=== PATIENT | male | born 1950 | race American Indian/Alaskan Native ===

== ENCOUNTER 2017-12-15 09:56 | Outpatient (CLI) | payer MEDICARE ==
[2017-12-15 10:31] LABS: Blood Urea Nitrogen 12 mg/dL (9-20)
[2017-12-15] MEDS ORDERED: NACL 0.9% 0 ML ONE (10:43)
--- NOTE | 2017-12-15 15:25 | Cat Scan Report ---
FINAL REPORT EXAM: CT CERVICAL SPINE WO/W CON HISTORY: ARM PAIN, NECK PAIN COMPARISON: None. TECHNIQUE: Multiple contiguous axial images were obtained through the cervical spine without administration of IV contrast. Reformatted sagittal and coronal images were available for review. FINDINGS: There is no acute fracture or dislocation. The vertebral body heights are maintained. There are calcifications of the anterior and posterior longitudinal ligaments. C1-C2: Hypertrophic changes of the articulation. C2-C3: Intervertebral disc space narrowing with anterior and uncovertebral osteophyte formation. Disc osteophyte complex creates mild central stenosis. Mild left foraminal stenosis. C3-C4: Intervertebral disc space narrowing with anterior and uncovertebral osteophyte formation. Disc osteophyte complex causes mild central stenosis. Moderate bilateral facet arthropathy. There is moderate right foraminal stenosis and mild left foraminal stenosis. C4-C5: There is anterior fusion hardware at this level. There is intervertebral disc space narrowing with anterior posterior osteophyte formation. Moderate bilateral facet arthropathy. Mild central stenosis. No foraminal stenosis. C5-C6: Intervertebral disc space narrowing with anterior and uncovertebral osteophyte formation. Moderate bilateral facet arthropathy. Mild central stenosis. No foraminal stenosis. C6-C7: Intervertebral disc space narrowing with anterior and uncovertebral osteophyte formation. No central or foraminal stenosis. C7-T1: Intervertebral disc space narrowing with anterior and uncovertebral osteophyte formation. No central or foraminal stenosis. The paravertebral soft tissues are normal. The airway is patent. The lung apices are clear. IMPRESSION: Multilevel degenerative changes of the cervical spine as described above. No acute fracture or dislocation.
== END 2017-12-15 09:57 | disposition home or self-care (01) ==
LOC: CT 09:56
PROVIDERS: ATTEND Internal Medicine
DX: M47.892 Other spondylosis, cervical region (principal); M79.601 Pain in right arm; Z88.0 Allergy status to penicillin
CPT/HCPCS: 36415; 72127; 82565; 84520; Q9967